=== PATIENT | male | born 1980 | race Caucasian/White ===

== ENCOUNTER 2019-07-06 15:12 | Inpatient (IN) | payer OTHER ==
--- NOTE | 2019-07-06 17:12 | BHS.RME ---
Substance Use & Tx History - Last Treatment Where was last treatment: Detox COWS - Scale Resting Pulse: 1= [place] 81-100 Sweatin= Chills/Flushing Restless Observation: 0= Sits Still Pupil Size: 1= Pupils >than Normal Bone or Joint Aches: 4=Acute Joint/Muscle Pain Runny Nose/ Eye Tearin= None GI Upset > 30mins: 1= Stomach Cramp Tremor Observation: 2= Slight Tremor Visible Yawning Observation: 1= 1-2x During Session Anxiety or Irritability: 4=Extreme Anxiety Goose Flesh Skin: 0=Smooth Skin COWS Score: 15
--- NOTE | 2019-07-06 17:16 | HP ---
COWS - Scale Resting Pulse: 1= [place] 81-100 Sweatin= Chills/Flushing Restless Observation: 0= Sits Still Pupil Size: 1= Pupils >than Normal Bone or Joint Aches: 4=Acute Joint/Muscle Pain Runny Nose/ Eye Tearin= None GI Upset > 30mins: 1= Stomach Cramp Tremor Observation: 2= Slight Tremor Visible Yawning Observation: 1= 1-2x During Session Anxiety or Irritability: 4=Extreme Anxiety Goose Flesh Skin: 0=Smooth Skin COWS Score: 15 CIWA Score - Admission Criteria OASAS Guidelines: Admission for Medically Managed Detox: Requires at least one of the followin. CIWA greater than 12 2. Seizures within the past 24 hours 3. Delirium tremens within the past 24 hours 4. Hallucinations within the past 24 hours 5. Acute intervention needed for co occurring medical disorder 6. Acute intervention needed for co occurring psychiatric disorder 7. Severe withdrawal that cannot be handled at a lower level of care (continued vomiting, continued diarrhea, abnormal vital signs) requiring intravenous medication and/or fluids 8. Admission ROS [facility] Chief Complaint: Heroin withdrawal symptoms Allergies/Adverse Reactions: Allergies Allergy/AdvReac Type Severity Reaction Status Date / Time No Known Allergies Allergy Verified 07/06/19 17:13 History of Present Illness: 38 years old male with 5 years of heroin dependence is seeking admission to detox. This is his first admission to [facility]. His last detox was at [facility] and he reports 18 months of sobriety. He reports medical history of DM type 2 (non compliant with medications). Patient reports that he has not seen a doctor and has not taken any antidiabetic medication for 4 months. He denies psych. history and suicide attempt/suicidal ideation at this time. Patient reports overdose about 3 years ago and denies blackouts. He reports daily use of 10-15 bags daily. He is unemployed and homeless. Patient History - Patient Medical History Hx Anemia: No Hx Asthma: No Hx Chronic Obstructive Pulmonary Disease (COPD): No Hx Cancer: No Hx Cardiac Disorders: No Hx Congestive Heart Failure: No Hx Hypertension: No Hx Hypercholesterolemia: No Hx Pacemaker: No HX Cerebrovascular Accident: No Hx Seizures: No Hx Diabetes: Yes (DM Type 2. Not on medication) Hx Gastrointestinal Disorders: No Hx Liver Disease: No Hx Genitourinary Disorders: No Hx Sexually Transmitted Disorders: No Hx Renal Disease (ESRD): No Hx Thyroid Disease: No Hx Human Immunodeficiency Virus (HIV): No (Negative 2019) Hx Hepatitis C: No Hx Depression: No Hx Suicide Attempt: No (Denies suicide attempt/ suicidal ideation at this time) Hx Bipolar Disorder: No Hx Schizophrenia: No - Patient Surgical History Past Surgical History: Yes Hx Orthopedic Surgery: Yes (RIGHT ELBOW AND LEFT RING FIINGER 2007,2016) - PPD History Previous Implant?: Yes Documented Results: Negative w/o proof Implanted On Prior [facility] Admission?: No PPD to be Administered?: Yes - Reproductive History Patient is a Female of Child Bearing Age (11 -55 yrs old): No (maloe) - Smoking Cessation Smoking history: Current every day smoker Have you smoked in the past 12 months: Yes Aproximately how many cigarettes per day: 10 Hx Chewing Tobacco Use: Yes Initiated information on smoking cessation: No 'Breaking Loose' booklet given: 07/06/19 - Substance & Tx. History Hx Alcohol Use: No Hx Substance Use: Yes Substance Use Type: Cocaine, Marijuana, Opiates Hx Substance Use Treatment: Yes ([facility]) - Substances abused Heroin Substance route: Injection Frequency: Daily Amount used: 10-15 bags Age of first use: 33 Date of last use: 07/05/19 Cocaine Substance route: Injection Frequency: Daily Amount used: $20 worth Age of first use: 33 Date of last use: 07/05/19 Admission Physical Exam S - Physical General Appearance: Yes: Moderate Distress, Tremorous, Irritable, Anxious HEENTM: Yes: Within Normal Limits Respiratory: Yes: Lungs Clear, Normal Breath Sounds, No Respiratory Distress Neck: Yes: Within Normal Limits Breast: Yes: Breast Exam Deferred Cardiology: Yes: Tachycardia Abdominal: Yes: Normal Bowel Sounds, Soft Genitourinary: Yes: Within Normal Limits Back: Yes: Normal Inspection Musculoskeletal: Yes: Back pain, Muscle Pain Extremities: Yes: Tremors Neurological: Yes: Within Normal Limits Integumentary: Yes: Warm Lymphatic: Yes: Within Normal Limits - Diagnostic (1) Opioid dependence with withdrawal Current Visit: Yes Status: Acute (2) Nicotine dependence Current Visit: Yes Status: Chronic Qualifiers: Nicotine product type: cigarettes Substance use status: uncomplicated Qualified Code(s): F17.210 - Nicotine dependence, cigarettes, uncomplicated (3) Diabetes type 2, uncontrolled Current Visit: Yes Status: Chronic Qualifiers: Coma presence: unspecified whether coma present Cleared for Admission S - Detox or Rehab [facility] Level of Care: Medically Managed Detox Regimen/Protocol: Methadone Claeared for Rehab Admission: No Inpatient Rehab Admission - Rehab Decision to Admit Inpatient rehab admission?: No
[2019-07-06 17:32] VITALS: BMI 25.7
[2019-07-06] MEDS ORDERED: METHOCARBAMOL 500 MG TABLET PO PRN (17:52)
[2019-07-06] MEDS ORDERED: NICOTINE POLACRILEX 2 MG GUM BUC PRN (17:52)
[2019-07-06] MEDS ORDERED: hydrOXYzine PAMOATE 25 MG CAPSULE (FP) PO PRN (17:52)
[2019-07-06] MEDS ORDERED: cloNIDine HCL 0.1 MG TABLET PO PRN (17:52)
[2019-07-06] MEDS ORDERED: IBUPROFEN 400 MG TABLET (FP) PO PRN (17:52)
[2019-07-06] MEDS ORDERED: ACETAMINOPHEN 325 MG TABLET (FP) PO PRN ×2 (17:52)
[2019-07-06] MEDS ORDERED: MAGNESIUM HYDROX 2400MG/30ML ORAL SUSPENSION 30 ML CUP PO PRN (17:52)
[2019-07-06] MEDS ORDERED: MENTHOL/PHENOL 1 EACH UD MM PRN (17:52)
[2019-07-06] MEDS ORDERED: MAG HYDROX/AL HYDROX/SIMETH 30 ML UNIT-DOSE CUP PO PRN (17:52)
[2019-07-06] MEDS ORDERED: BISMUTH SUBSALICYLATE 524 MG/30 ML UD PO PRN (17:52)
[2019-07-06] MEDS ORDERED: MELATONIN 5 MG TABLETS PO PRN (17:52)
[2019-07-06] MEDS ORDERED: MAGNESIUM CITRATE 300 ML BOTTLE PO PRN (17:52)
[2019-07-06] MEDS ORDERED: METHADONE HCL 10 MG TABLET (FOR DETOX USE ONLY) PO ONE (18:15)
[2019-07-06] MEDS: INSULIN SLIDING SCALE (NOVOLOG) 1 VIAL SQ SCH (22:14)
[2019-07-06] MEDS: THIAMINE HCL 100 MG TABLET (FP) PO SCH (22:14)
[2019-07-07] MEDS ORDERED: INSULIN SLIDING SCALE (NOVOLOG) 1 VIAL SQ ONE (07:28)
[2019-07-07] MEDS: INSULIN SLIDING SCALE (NOVOLOG) 1 VIAL SQ SCH ×4 (07:56→22:40)
[2019-07-07] MEDS ORDERED: METHADONE HCL 10 MG TABLET (FOR DETOX USE ONLY) ONE (09:25)
[2019-07-07] MEDS ORDERED: METHADONE HCL 5 MG TABLET (FOR DETOX USE ONLY) ONE (09:25)
[2019-07-07 09:46] LABS: HEMATOCRIT 36.6 % (35.4-49); HEMOGLOBIN 12.6 GM/dL (11.7-16.9); MCH 27.8 pg (25.7-33.7); MCHC 34.3 g/dl (32.0-35.9); MEAN PLT VOLUME 8.1 fl (7.5-11.1); PLATELET COUNT 255 K/MM3 (134-434); RBC 4.51 M/mm3 (4.00-5.60); RDW 13.2 % (11.9-15.9); WHITE BLOOD COUNT 7.3 K/mm3 (4.0-10.0)
[2019-07-07] MEDS ORDERED: METHADONE (DETOX) 20 MG, METHADONE (DETOX) 5 MG PO ONE (10:00)
[2019-07-07 10:23] LABS: BILIRUBIN,TOTAL 0.5 mg/dL (0.2-1); CALCIUM 8.5 mg/dL (8.5-10.1); CREATININE 0.6 mg/dL (0.55-1.3); POTASSIUM 4.2 mmol/L (3.5-5.1); TOT PROT 6.5 g/dl (6.4-8.2)
[2019-07-07] MEDS: PRENATAL VITAMINS W/ FOLIC ACID TABLET (FP) PO SCH (10:35)
[2019-07-07] MEDS: NICOTINE 14 MG/24 HOURS TOPICAL PATCH TD SCH (10:36)
--- NOTE | 2019-07-07 12:24 | PN ---
BHS COWS - Scale Resting Pulse: 0= [place] 80 or Below Sweatin= Beads of Sweat on Face Restless Observation: 1= Difficult to Sit Still Pupil Size: 0= Normal to Room Light Bone or Joint Aches: 2= Severe Diffuse Aches Runny Nose/ Eye Tearin= None GI Upset > 30mins: 1= Stomach Cramp Tremor Observation of Outstretched Hands: 0= None Yawning Observation: 1= 1-2x During Session Anxiety or Irritability: 2=Irritable/Anxious Goose Flesh Skin: 0=Smooth Skin COWS Score: 10 S Progress Note (SOAP) Subjective: c/o chills, sweats, anxiety, irritability, and muscle aches. Objective: 07/07/19 12:22 Vital Signs 07/07/19 07/07/19 07/07/19 06:40 07:22 08:57 Temperature 98.6 F 98.9 F Pulse Rate 69 79 Respiratory 16 16 18 Rate Blood Pressure 107/67 142/93 Laboratory Last Values WBC 7.3 K/mm3 (4.0-10.0) 07/07/19 07:20 RBC 4.51 M/mm3 (4.00-5.60) 07/07/19 07:20 Hgb 12.6 GM/dL (11.7-16.9) 07/07/19 07:20 Hct 36.6 % (35.4-49) 07/07/19 07:20 MCV 81.0 fl (80-96) 07/07/19 07:20 MCH 27.8 pg (25.7-33.7) 07/07/19 07:20 MCHC 34.3 g/dl (32.0-35.9) 07/07/19 07:20 RDW 13.2 % (11.9-15.9) 07/07/19 07:20 Plt Count 255 K/MM3 (134-434) 07/07/19 07:20 MPV 8.1 fl (7.5-11.1) 07/07/19 07:20 Sodium 139 mmol/L (136-145) 07/07/19 07:20 Potassium 4.2 mmol/L (3.5-5.1) 07/07/19 07:20 Chloride 106 mmol/L (98-107) 02/29/20 07:20 Carbon Dioxide 28 mmol/L (21-32) 07/07/19 07:20 Anion Gap 6 MMOL/L (8-16) L 07/07/19 07:20 BUN 12.0 mg/dL (7-18) 07/07/19 07:20 Creatinine 0.6 mg/dL (0.55-1.3) 07/07/19 07:20 Est GFR (CKD-EPI)AfAm 146.79 07/07/19 07:20 Est GFR (CKD-EPI)NonAf 126.65 07/07/19 07:20 POC Glucometer 266 UNITS (80-120) 07/07/19 11:19 Random Glucose 181 mg/dL (74-106) H 07/07/19 07:20 Calcium 8.5 mg/dL (8.5-10.1) 07/07/19 07:20 Total Bilirubin 0.5 mg/dL (0.2-1) 07/07/19 07:20 AST 11 U/L (15-37) L 07/07/19 07:20 ALT 21 U/L (13-61) 07/07/19 07:20 Alkaline Phosphatase 150 U/L (45-117) H 07/07/19 07:20 Total Protein 6.5 g/dl (6.4-8.2) 07/07/19 07:20 Albumin 3.0 g/dl (3.4-5.0) L 07/07/19 07:20 RPR Titer Nonreactive (NONREACTIVE) 07/07/19 07:20 Labs noted. Assessment: 07/07/19 12:22 AOX3, in no respiratory distress. Full ROM, ambulating in the unit. Withdrawal symptoms. Plan: continue detox.
--- NOTE | 2019-07-07 13:13 | EKG ---
Test Reason : Blood Pressure : / mmHG Vent. Rate : 079 BPM Atrial Rate : 079 BPM P-R Int : 142 ms QRS Dur : 080 ms QT Int : 382 ms P-R-T Axes : 033 -12 004 degrees QTc Int : 438 ms NORMAL SINUS RHYTHM VOLTAGE CRITERIA FOR LEFT VENTRICULAR HYPERTROPHY CANNOT RULE OUT LATERAL INFARCT , AGE UNDETERMINED NONSPECIFIC T WAVE ABNORMALITY ABNORMAL ECG NO PREVIOUS ECGS AVAILABLE Confirmed by NAYELI CHRISTIAN MD ([id number]) on 07/07/2019 1:13:00 PM Referred By: NIKKI Confirmed By:NAYELI CHRISTIAN MD
[2019-07-07] MEDS: THIAMINE HCL 100 MG TABLET (FP) PO SCH (22:41)
[2019-07-08] MEDS: INSULIN SLIDING SCALE (NOVOLOG) 1 VIAL SQ SCH ×2 (07:19→10:58)
[2019-07-08] MEDS ORDERED: METHADONE HCL 10 MG TABLET (FOR DETOX USE ONLY) PO ONE (10:00)
[2019-07-08] MEDS: PRENATAL VITAMINS W/ FOLIC ACID TABLET (FP) PO SCH (10:33)
[2019-07-08] MEDS: NICOTINE 14 MG/24 HOURS TOPICAL PATCH TD SCH (10:35)
--- NOTE | 2019-07-08 13:50 | PN ---
BHS COWS - Scale Resting Pulse: 0= [place] 80 or Below Sweatin= Chills/Flushing Restless Observation: 0= Sits Still Pupil Size: 1= Pupils >than Normal Bone or Joint Aches: 1= Mild Discomfort Runny Nose/ Eye Tearin= None GI Upset > 30mins: 2= Nausea/Diarrhea Tremor Observation of Outstretched Hands: 2= Slight Tremor Visible Yawning Observation: 0= None Anxiety or Irritability: 2=Irritable/Anxious Goose Flesh Skin: 0=Smooth Skin COWS Score: 9 BHS Progress Note (SOAP) Subjective: 38 years old male admitted on 07/06/19 for opiate withdrawal sx management treating with methadone detox regiment feeling ok but tired trouble sleep at night restlessness anxiety Objective: 07/08/19 13:49 Vital Signs Temperature 96 F L 07/08/19 12:27 Pulse Rate 66 07/08/19 12:27 Respiratory Rate 18 07/08/19 12:27 Blood Pressure 134/85 07/08/19 12:27 O2 Sat by Pulse Oximetry (%) Laboratory Last Values WBC 7.3 K/mm3 (4.0-10.0) 07/07/19 07:20 RBC 4.51 M/mm3 (4.00-5.60) 07/07/19 07:20 Hgb 12.6 GM/dL (11.7-16.9) 07/07/19 07:20 Hct 36.6 % (35.4-49) 07/07/19 07:20 MCV 81.0 fl (80-96) 07/07/19 07:20 MCH 27.8 pg (25.7-33.7) 07/07/19 07:20 MCHC 34.3 g/dl (32.0-35.9) 07/07/19 07:20 RDW 13.2 % (11.9-15.9) 07/07/19 07:20 Plt Count 255 K/MM3 (134-434) 07/07/19 07:20 MPV 8.1 fl (7.5-11.1) 07/07/19 07:20 Sodium 139 mmol/L (136-145) 07/07/19 07:20 Potassium 4.2 mmol/L (3.5-5.1) 07/07/19 07:20 Chloride 106 mmol/L (98-107) 07/07/19 07:20 Carbon Dioxide 28 mmol/L (21-32) 07/07/19 07:20 Anion Gap 6 MMOL/L (8-16) L 07/07/19 07:20 BUN 12.0 mg/dL (7-18) 07/07/19 07:20 Creatinine 0.6 mg/dL (0.55-1.3) 07/07/19 07:20 Est GFR (CKD-EPI)AfAm 146.79 07/07/19 07:20 Est GFR (CKD-EPI)NonAf 126.65 07/07/19 07:20 POC Glucometer 143 UNITS (80-120) 07/08/19 10:35 Random Glucose 181 mg/dL (74-106) H 07/07/19 07:20 Calcium 8.5 mg/dL (8.5-10.1) 07/07/19 07:20 Total Bilirubin 0.5 mg/dL (0.2-1) 07/07/19 07:20 AST 11 U/L (15-37) L 07/07/19 07:20 ALT 21 U/L (13-61) 07/07/19 07:20 Alkaline Phosphatase 150 U/L (45-117) H 07/07/19 07:20 Total Protein 6.5 g/dl (6.4-8.2) 07/07/19 07:20 Albumin 3.0 g/dl (3.4-5.0) L 07/07/19 07:20 RPR Titer Nonreactive (NONREACTIVE) 07/07/19 07:20 lab noted 07/08/19 13:49 long history of diabetes Assessment: 07/08/19 13:50 opiate withdrawal Plan: methadone regiment
[2019-07-08 15:33] VITALS: BP 127/81; PULSE 64; TEMP 97.2
--- NOTE | 2019-07-08 15:43 | DS ---
[facility] Detox Discharge Summary Admission Date: 07/06/19 Discharge Date: 07/08/19 - History Present History: Opioid Dependence Additional Comments: 38 years old male admitted on 07/06/19 for opiate withdrawal sx management treated [facility] methadone detox regiment Mr Pina is alert oriented x 3 speech clearly coherently ambulating steady gait full range of motion denies suicidal no homocidal ideation no self destructive behavior Pertinent Past History: time for discharge 48 minutes patient insists to leave the detox unit today without apparent reason patient is guarded, defensive, refuses to reveal reasons leaving the detox unit patient ate breakfast and lunch in day room social with peers patient wants to leave the unit with a female peer refuses to discuss detox completion further - Physical Exam Results Vital Signs: Vital Signs Temperature 97.2 F L 07/08/19 15:32 Pulse Rate 64 07/08/19 15:32 Respiratory Rate 16 07/08/19 15:32 Blood Pressure 127/81 07/08/19 15:32 O2 Sat by Pulse Oximetry (%) Pertinent Admission Physical Exam Findings: opiate withdrawal Vital Signs Temperature 97.2 F L 07/08/19 15:32 Pulse Rate 64 07/08/19 15:32 Respiratory Rate 16 07/08/19 15:32 Blood Pressure 127/81 07/08/19 15:32 O2 Sat by Pulse Oximetry (%) Laboratory Last Values WBC 7.3 K/mm3 (4.0-10.0) 07/07/19 07:20 RBC 4.51 M/mm3 (4.00-5.60) 07/07/19 07:20 Hgb 12.6 GM/dL (11.7-16.9) 07/07/19 07:20 Hct 36.6 % (35.4-49) 07/07/19 07:20 MCV 81.0 fl (80-96) 07/07/19 07:20 MCH 27.8 pg (25.7-33.7) 07/07/19 07:20 MCHC 34.3 g/dl (32.0-35.9) 07/07/19 07:20 RDW 13.2 % (11.9-15.9) 07/07/19 07:20 Plt Count 255 K/MM3 (134-434) 07/07/19 07:20 MPV 8.1 fl (7.5-11.1) 07/07/19 07:20 Sodium 139 mmol/L (136-145) 07/07/19 07:20 Potassium 4.2 mmol/L (3.5-5.1) 07/07/19 07:20 Chloride 106 mmol/L (98-107) 07/07/19 07:20 Carbon Dioxide 28 mmol/L (21-32) 07/07/19 07:20 Anion Gap 6 MMOL/L (8-16) L 07/07/19 07:20 BUN 12.0 mg/dL (7-18) 07/07/19 07:20 Creatinine 0.6 mg/dL (0.55-1.3) 07/07/19 07:20 Est GFR (CKD-EPI)AfAm 146.79 07/07/19 07:20 Est GFR (CKD-EPI)NonAf 126.65 07/07/19 07:20 POC Glucometer 143 UNITS (80-120) 07/08/19 10:35 Random Glucose 181 mg/dL (74-106) H 07/07/19 07:20 Calcium 8.5 mg/dL (8.5-10.1) 07/07/19 07:20 Total Bilirubin 0.5 mg/dL (0.2-1) 07/07/19 07:20 AST 11 U/L (15-37) L 07/07/19 07:20 ALT 21 U/L (13-61) 07/07/19 07:20 Alkaline Phosphatase 150 U/L (45-117) H 07/07/19 07:20 Total Protein 6.5 g/dl (6.4-8.2) 07/07/19 07:20 Albumin 3.0 g/dl (3.4-5.0) L 07/07/19 07:20 RPR Titer Nonreactive (NONREACTIVE) 07/07/19 07:20 lab noted long history of diabetes - Treatment Hospital Course: Detox Protocol Followed, Discharged Condition Good Patient has Accepted a Rehab [facility] - Medication Discharge Medications: Ambulatory Orders Metformin HCl [Glucophage] 1,000 mg PO BID 07/06/19 - Diagnosis (1) Opioid dependence with withdrawal Current Visit: Yes Status: Acute (2) Nicotine dependence Current Visit: Yes Status: Acute Qualifiers: Nicotine product type: cigarettes Substance use status: in withdrawal Qualified Code(s): F17.213 - Nicotine dependence, cigarettes, with withdrawal (3) Diabetes type 2, uncontrolled Current Visit: Yes Status: Chronic Qualifiers: Coma presence: unspecified whether coma present - AMA Did Patient Leave Against Medical Advice: Yes COWS (PN) - Opiate Withdrawal Resting Pulse: 0= [place] 80 or Below Sweatin= Chills/Flushing Restless Observation: 0= Sits Still Pupil Size: 0= Normal to Room Light Bone or Joint Aches: 1= Mild Discomfort Runny Nose/ Eye Tearin= Nasal Congestion GI Upset > 30mins: 1= Stomach Cramp Tremor Observation of Outstretched Hands: 1= Tremor [place], Not Seen Yawning Observation: 0= None Anxiety or Irritability: 1=Feels Anxious/Irritable Goose Flesh Skin: 0=Smooth Skin COWS Score: 6
[2019-07-09] MEDS ORDERED: METHADONE (DETOX) 10 MG, METHADONE (DETOX) 5 MG PO ONE (10:00)
[2019-07-10] MEDS ORDERED: METHADONE HCL 10 MG TABLET (FOR DETOX USE ONLY) PO ONE (10:00)
[2019-07-11] MEDS ORDERED: METHADONE HCL 5 MG TABLET (FOR DETOX USE ONLY) PO ONE (06:00)
== END 2019-07-08 15:55 | disposition left against medical advice (07) | DRG 770 ==
LOC: YASAS 15:12 → Y3N 17:45
PROVIDERS: ADMIT Allergy & Immunology; ATTEND Allergy & Immunology
PROC: HZ2ZZZZ Detoxification Services for Substance Abuse Treatment (ICD-10-PCS; principal; 2019-07-06)
DX: F11.23 Opioid dependence with withdrawal (principal); F14.20 Cocaine dependence, uncomplicated; F17.210 Nicotine dependence, cigarettes, uncomplicated; E11.65 Type 2 diabetes mellitus with hyperglycemia; Z79.84 Long term (current) use of oral hypoglycemic drugs
CPT/HCPCS: 36415; 80053; 82962; 85027; 86593; 93005; 93010